=== PATIENT | male | born 1970 | race Caucasian/White ===

== ENCOUNTER 2021-07-24 18:01 | Emergency (ER) | payer OTHER, SELFPAY ==
--- NOTE | ~2021-07-24 | XR_ITS ---
EXAMINATION: XR wrist RT min 3V EXAM DATE: 07/24/2021 18:51 INDICATION: Wrist thru thorn marti yesterday- pain, swelling, numb, LROM TECHNIQUE: Right wrist frontal, frontal with ulnar deviation, oblique and lateral projections obtain ed and reviewed. There is no prior study for comparison. FINDINGS: Right wrist scapholunate joint space is maintained. There are no bony erosions identified. There are no acute fractures or dislocations identified. There is no subcutaneous gas. There is sof t tissue swelling over the wrist. There are no radiopaque foreign bodies. IMPRESSION: Diffuse right wrist soft tissue swelling. Reviewed, dictated and finalized at location G.
[2021-07-24 18:10] VITALS: BP 179/119; PULSE 89; RESP 20; TEMP 36.9; O2SAT 97
[2021-07-24 18:43] VITALS: BP 174/106
--- NOTE | 2021-07-24 18:47 | ED.UPPEXIN ---
HPI - Extremity Injury (Upper) General Chief Complaint: Skin/Abscess/Foreign Body Stated Complaint: cut arm-possible infection History of Present Illness HPI narrative: Pt was moving wood palate yesterday and scraped volar surface of right wrist. Pt says he pulled out splinter. Pt says it is now red and tender around area and it hurts to move his middle fingers. Pt denies fever. MD complaint: injury to: right and wrist Severity: moderate Relieving factors: none Exacerbating factors: movement of extremity Related Data Home Medications Medication Instructions Recorded Confirmed No Home Medications 07/24/21 07/24/21 Allergies Allergy/AdvReac Type Severity Reaction Status Date / Time No Known Allergies Allergy Verified 07/24/21 18:35 Review of Systems Review of Systems: All systems reviewed & are unremarkable except as noted in HPI and below Exam Const: General: no acute distress Orientation/consciousness: patient oriented x3 Chest: Chest palpation & inspection: normal inspection of the chest Resp: Effort & Inspection: normal respiratory effort Cardio: Rate: regular rate Rhythm: regular rhythm Skin: Other: erythema around abrasion on volar right wrist extending up forearm Neuro: General: patient oriented x3, moves all extremities and no focal motor deficits Extrem: Other: right forearm swollen Psych: Appearance: grossly normal Mental Status: mental status grossly normal Course Consultations Consultation #1: discussed with dr yanez, will see pt in office in follow up Date: 07/24/21 Time: 19:17 Vital Signs Vital signs: Vital Signs Temperature 98.5 F 07/24/21 18:10 Pulse Rate 89 07/24/21 18:10 Respiratory Rate 20 07/24/21 18:10 Blood Pressure 179/119 H 07/24/21 18:10 Pulse Oximetry 97 07/24/21 18:10 Temperature 98.5 F 07/24/21 19:19 Pulse Rate 89 07/24/21 19:19 Respiratory Rate 20 07/24/21 19:19 Blood Pressure 174/106 H 07/24/21 19:19 Pulse Oximetry 97 07/24/21 19:19 Discharge Plan Discharge Clinical Impression: Cellulitis Qualifiers: Site of cellulitis of extremity: upper extremity Laterality: right Patient Disposition: Home, Self-Care Condition: Stable Instructions: Antibiotic Form Prescriptions: New sulfamethoxazole-trimethoprim [Bactrim DS] 800-160 mg tablet 2 tablet PO Q12H Qty: 40 RF: 0 No Action No Home Medications RF: 0 Follow-up/Referrals: Manuel Yanez MD [Physician] - (call for appointment tomorrow) UNKNOWN,DOCTOR [Primary Care Provider] -
[2021-07-24] MEDS: TETANUS,DIPHTHERIA,AC PERTUSSIS ADULT 0.5 ML (ADACEL) IM (18:49)
--- NOTE | 2021-07-24 19:18 | PC.NURSE ---
REPORT TO KARINA SAEED. NO CONCERNS OR QUESTIONS AT THIS TIME.
[2021-07-24 19:19] VITALS: BP 174/106; PULSE 89; RESP 20; TEMP 36.9; O2SAT 97
[2021-07-24] MEDS: ceFAZolin SODIUM 1 GM VIAL IM (19:20)
[2021-07-24] MEDS: LIDOCAINE HCL 1% LOCAL INJ 20 ML VIAL (19:24)
[2021-07-24 19:44] VITALS: BP 160/99; PULSE 87; RESP 20; TEMP 36.8; O2SAT 98
== END 2021-07-24 19:45 | disposition home or self-care (01) ==
PROVIDERS: Emergency Provider Emergency Medicine
DX: L03.113 Cellulitis of right upper limb (principal)
CPT/HCPCS: 73110; 90471; 90715; 96372; 99283; J0690

== ENCOUNTER 2021-09-22 13:15 | Emergency (ER) | payer OTHER, SELFPAY ==
[2021-09-22 13:25] VITALS: BP 168/89; PULSE 87; RESP 14; TEMP 36.2; O2SAT 100
--- NOTE | 2021-09-22 13:37 | ED.UPPEXIN ---
HPI - Extremity Injury (Upper) General Chief Complaint: Wound/Laceration Stated Complaint: wound on R wrist Time Seen by Provider: 09/22/21 13:37 Source: patient History of Present Illness HPI narrative: 51-year-old male presented to the ER 1 month ago for a splinter in his right wrist which he pulled out. He received tetanus shot and was discharged home on Bactrim 2 tablets B.i.d. for 10 days. he had an x-ray which did not show any foreign body in his right wrist. He presents to the ER today with -- 2 cm swelling with yellow discharge. Mildly tender. No red streaks running up his forearm No fever or chills. MD complaint: injury to: right Onset (ago): month(s) ( 1 month ago) Handedness: right Place: home Severity: mild Relieving factors: none Exacerbating factors: none Associated symptoms: denies other symptoms Related Data Allergies Allergy/AdvReac Type Severity Reaction Status Date / Time No Known Allergies Allergy Verified 09/22/21 13:56 Review of Systems Review of Systems: All systems reviewed & are unremarkable except as noted in HPI and below Constitutional: Constitutional: Reports as per HPI and Reports no additional constitutional complaints Eyes: Eyes: Reports as per HPI and Reports no additional eye complaints ENT: Reports system reviewed and no additional complaints, except as documented and Reports as per HPI Cardiovascular: Cardiovascular: Reports as per HPI and Reports no additional cardiovascular complaints Respiratory: Respiratory: Reports as per HPI and Reports no additional respiratory complaints Gastrointestinal: Gastrointestinal: Reports as per HPI and Reports no additional gastrointestinal complaints Genitourinary: Genitourinary: Reports no additional male genitourinary complaints Musculoskeletal: Musculoskeletal: Reports no additional musculoskeletal complaints and Reports as per HPI Integumentary/Breasts: Skin/Breast: Reports system reviewed and no additional complaints, except as docu and Reports as per HPI Comments: right wrist has a 2 cm swelling which intermittently discharge is yellow liquid Neurologic: Reports system reviewed and no additional complaints, except as documented and Reports as per HPI Psychiatric: Psychiatric: Reports no additional psychiatric complaints and Reports as per HPI Endocrine: Endocrine: Reports no additional endocrine complaints and Reports as per HPI Hematologic/Lymphatic: Hematologic/Lymphatic: Reports no additional hematologic/lymphatic complaints and Reports as per HPI Allergic/Immunologic: Allergic/Immunologic: Reports no additional allergic/immunologic complaints and Reports as per HPI Exam Const: General: cooperative, healthy appearing, comfortable and no acute distress HENMT: Head: normal to inspection Ears: hearing grossly normal bilaterally General nose exam: Normal external nose present Face and sinus: normal facial exam Mouth: Yes Normal oral and palatal mucosa present and Yes lip normal Teeth and gingiva: dentition normal Throat: posterior oropharynx normal Eyes: General: appearance normal, both eyes and all related structures EOM: EOMs intact bilaterally Neck: Neck: normal visual inspection, full ROM, no lymphadenopathy and no meningeal signs Chest: Chest palpation & inspection: normal inspection of the chest and normal palpation of entire chest wall Resp: Effort & Inspection: able to speak in complete sentences Auscultation: clear to auscultation bilaterally Cardio: Palpation: normal PMI Rate: regular rate Rhythm: regular rhythm Heart sounds: S1 normal heart sound present and S2 normal heart sound present GI: Inspection: normal to inspection GI Palp: Yes Soft to palpation : General: Yes bimanual renal exam normal bilaterally and Yes no CVA tenderness Skin: General skin exam: normal color and no rashes or lesions noted Lesions: lesion noted Other: 2 cm swelling of the right wrist which is cystic on palpation. Yellow d
[2021-09-22 14:16] LABS: Basophils Absolute Auto 0.03 K/mm3 (0.00-0.10); Basophils Percent Auto 0.4 % (0.0-1.0); Eosinophils Absolute Auto 0.17 K/mm3 (0.02-0.50); Eosinophils Percent Auto 2.2 % (1.0-6.0); Hematocrit 46.9 % (40.0-54.0); Hemoglobin 15.6 g/dL (14.0-18.0); Immature Granulocyte Absolute 0.02 K/mm3 (0.00-0.00); Immature Granulocyte Percent A 0.3 % (0.0-0.0); Lymphocytes Absolute Auto 2.43 K/mm3 (1.10-4.50); Lymphocytes Percent Auto 31.5 % (18.0-42.0); Mean Corpuscular HGB Conc 33.3 g/dL (32.0-36.0); Mean Corpuscular Hemoglobin 31.3 pg (27.0-31.0); Mean Corpuscular Volume 94.2 fL (78.0-102.0); Monocytes Absolute Auto 0.48 K/mm3 (0.10-0.90); Monocytes Percent Auto 6.2 % (2.0-11.0); Neutrophils Absolute Auto 4.6 K/mm3 (1.7-7.2); Neutrophils Percent Auto 59.4 % (50.0-70.0); Platelet Count Result 232 K/mm3 (150-420); Red Blood Count 4.98 M/mm3 (4.70-6.10); Red Cell Distribution Width 13.2 % (11.6-14.4); White Blood Count 7.7 K/mm3 (4.8-10.8)
[2021-09-22 14:32] LABS: Alanine Aminotransferase 25 U/L (16-63); Albumin Level 3.4 g/dL (3.4-5.0); Alkaline Phosphatase 99 U/L (46-116); Anion Gap 8 mmol/L (8-16); Aspartate Amino Transferase 15 U/L (15-37); Bilirubin,Total 0.5 mg/dL (0.00-1.00); Blood Urea Nitrogen 18 mg/dL (7-18); Calcium 8.8 mg/dL (8.5-10.1); Carbon Dioxide 26 mmol/L (21-32); Chloride 100 mmol/L (98-108); Estimated CRCL calculation 116 ml/min; Estimated Glomerular Filt Rate > 60; Glucose 155 mg/dL (70-99); Osmolality Calculated 282 mOsm/kg (285-295); Potassium 3.8 mmol/L (3.5-5.1); Sodium 134 mmol/L (136-145); Total Protein 7.3 g/dL (6.4-8.2)
[2021-09-22 14:37] LABS: Lactic Acid Reflex 1.5 mmol/L (0.4-2.0)
[2021-09-22 14:59] VITALS: BP 156/80; PULSE 75; RESP 16; TEMP 36.8; O2SAT 99
== END 2021-09-22 15:00 | disposition home or self-care (01) ==
PROVIDERS: Emergency Provider Internal Medicine Critical Care Medicine
DX: L02.413 Cutaneous abscess of right upper limb (principal)
CPT/HCPCS: 36415; 80053; 83605; 85025; 87040; 99283